=== PATIENT | male | born 1970 | race Caucasian/White ===

== ENCOUNTER 2016-11-21 16:20 | Emergency (ER) | payer MEDICARE, MEDICAID | END 2016-11-21 17:05 | disposition home or self-care (01) | DX: M54.42 Lumbago with sciatica, left side (principal); B20 Human immunodeficiency virus [HIV] disease; I10 Essential (primary) hypertension; E78.5 Hyperlipidemia, unspecified; E11.9 Type 2 diabetes mellitus without complications ==

== ENCOUNTER 2016-11-26 14:13 | Emergency (ER) | payer MEDICARE, MEDICAID | END 2016-11-26 19:32 | disposition short-term general hospital (02) | DX: D69.59 Other secondary thrombocytopenia (principal); B20 Human immunodeficiency virus [HIV] disease; R23.3 Spontaneous ecchymoses; E78.00 Pure hypercholesterolemia, unspecified; E11.9 Type 2 diabetes mellitus without complications; Z87.11 Personal history of peptic ulcer disease ==

== ENCOUNTER 2016-11-26 19:14 | Outpatient (CLI) | payer MEDICARE, MEDICAID | END 2016-11-26 19:15 | disposition short-term general hospital (02) | DX: D69.6 Thrombocytopenia, unspecified (principal); R21 Rash and other nonspecific skin eruption | CPT/HCPCS: A0170; A0425; A0428 ==

== ENCOUNTER 2016-12-07 11:32 | Emergency (ER) | payer MEDICARE, MEDICAID ==
[2016-12-07] MEDS ORDERED: OXYMETAZOLINE NASAL SPRAY NAS STA (14:16)
[2016-12-07] MEDS ORDERED: TRANEXAMIC ACID 1,000 MG/10 ML VIAL NAS STA (14:16)
[2016-12-07] MEDS ORDERED: OXYMETAZOLINE NASAL SPRAY NAS ONE (14:27)
[2016-12-07] MEDS ORDERED: TRANEXAMIC ACID 1,000 MG/10 ML VIAL ONE (14:27)
[2016-12-07] MEDS ORDERED: DEXAMETHASONE 10 MG/ML VIAL IVP STA (15:05)
[2016-12-07] MEDS ORDERED: DEXAMETHASONE 10 MG/ML VIAL ONE (15:30)
== END 2016-12-07 18:35 | disposition short-term general hospital (02) ==
DX: R04.0 Epistaxis (principal); D69.3 Immune thrombocytopenic purpura; E78.00 Pure hypercholesterolemia, unspecified; E11.9 Type 2 diabetes mellitus without complications; Z87.11 Personal history of peptic ulcer disease
CPT/HCPCS: 30901; 36415; 80053; 83690; 85025; 96374; 99283; 99284; A9270

== ENCOUNTER 2016-12-07 18:43 | Outpatient (CLI) | payer MEDICARE, MEDICAID | END 2016-12-07 18:44 | disposition short-term general hospital (02) | LOC: EMS 18:43 | PROVIDERS: ATTEND Surgery | DX: R04.0 Epistaxis (principal) | CPT/HCPCS: A0170; A0425; A0428 ==

== ENCOUNTER 2016-12-15 15:27 | Outpatient (CLI) | payer MEDICARE, MEDICAID ==
[2016-12-15 20:00] LABS: ALBUMIN/GLOBULIN RATIO 0.6 (1.0-2.2); BILIRUBIN,TOTAL 0.3 mg/dL (0.2-1.0); CALCIUM 8.9 mg/dL (8.5-10.3); POTASSIUM 4.1 mmol/L (3.5-5.0); TOTAL PROTEIN 8.4 g/dL (6.7-8.2)
[2016-12-15 20:20] LABS: BASOPHILS % (AUTO) 0.4 %; EOSINOPHILS # (AUTO) 0.1 10^3/uL (0.0-0.7); EOSINOPHILS % (AUTO) 0.8 %; HCT - HEMATOCRIT 44.5 % (42.0-52.0); HGB - HEMOGLOBIN 14.7 g/dL (14.0-18.0); LYMPHOCYTES # (AUTO) 2.2 10^3/uL (1.5-3.5); LYMPHOCYTES % (AUTO) 21.9 %; MEAN CORPUSCULAR HEMOGLOBIN 27.6 pg (27.0-31.0); MEAN CORPUSCULAR VOLUME 83.6 fL (80.0-94.0); MEAN PLATELET VOLUME 9.5 fL (7.4-11.4); MONOCYTES # (AUTO) 0.8 10^3/uL (0.0-1.0); MONOCYTES % (AUTO) 8.6 %; NEUTROPHILS # (AUTO) 6.8 10^3/uL (1.5-6.6); NEUTROPHILS % (AUTO) 68.3 %; NUCLEATED RED BLOOD CELLS AUTO 0.2 /100WBC; RED BLOOD COUNT 5.32 10^6/uL (4.70-6.10); RED CELL DISTRIBUTION WIDTH 13.5 % (12.0-15.0); UNCORRECTED WHITE BLOOD COUNT 9.9 x10^3/uL; WHITE BLOOD COUNT 9.9 x10^3/uL (4.8-10.8)
== END 2016-12-15 15:28 | disposition home or self-care (01) ==
LOC: LAB.N 15:27
PROVIDERS: ATTEND Physician Assistant
DX: B20 Human immunodeficiency virus [HIV] disease (principal)
CPT/HCPCS: 36415; 80053; 85025

== ENCOUNTER 2016-12-31 20:06 | Emergency (ER) | payer MEDICARE, MEDICAID ==
[2016-12-31 22:30] LABS: BASOPHILS # (AUTO) 0.1 10^3/uL (0.0-0.1); BASOPHILS % (AUTO) 1.1 %; EOSINOPHILS # (AUTO) 0.1 10^3/uL (0.0-0.7); EOSINOPHILS % (AUTO) 1.9 %; HGB - HEMOGLOBIN 14.4 g/dL (14.0-18.0); LYMPHOCYTES % (AUTO) 38.6 %; MEAN CORPUSCULAR HEMOGLOBIN 27.5 pg (27.0-31.0); MEAN CORPUSCULAR HGB CONC 34.2 g/dL (32.0-36.0); MEAN CORPUSCULAR VOLUME 80.5 fL (80.0-94.0); MEAN PLATELET VOLUME 9.5 fL (7.4-11.4); MONOCYTES # (AUTO) 0.7 10^3/uL (0.0-1.0); MONOCYTES % (AUTO) 9.2 %; NEUTROPHILS # (AUTO) 3.8 10^3/uL (1.5-6.6); NEUTROPHILS % (AUTO) 49.2 %; RED BLOOD COUNT 5.22 10^6/uL (4.70-6.10); RED CELL DISTRIBUTION WIDTH 13.9 % (12.0-15.0); UNCORRECTED WHITE BLOOD COUNT 7.7 x10^3/uL; WHITE BLOOD COUNT 7.7 x10^3/uL (4.8-10.8)
[2016-12-31 22:35] LABS: PT - PROTHROMBIN TIME 11.4 secs (9.9-12.6)
[2016-12-31 23:01] LABS: PLATELET ESTIMATE, MANUAL DECREASED (<130,000) (NORMAL)
[2016-12-31 23:08] LABS: ALBUMIN/GLOBULIN RATIO 1.2 (1.0-2.2); BILIRUBIN,TOTAL 0.5 mg/dL (0.2-1.0); CREATININE 1.1 mg/dL (0.6-1.2); POTASSIUM 3.8 mmol/L (3.5-5.0); TOTAL PROTEIN 8.1 g/dL (6.7-8.2)
[2016-12-31 23:38] VITALS: BP 149/101
[2017-01-01] MEDS ORDERED: DEXAMETHASONE 10 MG/ML VIAL PO STA
[2017-01-01] MEDS ORDERED: DEXAMETHASONE 10 MG/ML VIAL ONE (00:09)
[2017-01-01] MEDS ORDERED: CHERRY SYRUP 10 ML UDC PO ONE (00:10)
--- NOTE | 2017-01-01 02:40 | ED Physician Documentation ---
History of Present Illness - Stated complaint Stated Complaint: MOUTH DISCOMFORT - Chief complaint Chief Complaint: General - History obtained from History obtained from: Patient - History of Present Illness Timing: Today - Additonal information Additional information: Patient is 46 year old male with a history of hiv and recurrent itp who is presenting to the emergency department for a lesion on the roof of his mouth. patient states that he just noticed it today, but denies any trauma. Patient states that he has been on anti retrovirals but he had not been compliant with them. Patient denied any other symptoms at this time. Review of Systems Constitutional: denies: Fever, Chills, Myalgias Eyes: denies: Loss of vision, Decreased vision Ears: denies: Loss of hearing, Ear pain, Drainage/discharge Nose: denies: Rhinorrhea / runny nose, Congestion, Epistaxis Throat: denies: Dental pain / toothache, Oral lesions / sores, Sore throat Cardiac: denies: Chest pain / pressure, Palpitations Respiratory: denies: Dyspnea, Cough, Wheezing GI: denies: Abdominal Pain, Nausea, Vomiting : denies: Hematuria Musculoskeletal: denies: Neck pain, Back pain, Extremity pain Neurologic: denies: Generalized weakness, Headache, Head injury Immunocompromised: reports: HIV/AIDS PD PAST MEDICAL HISTORY - Past Medical History Past Medical History: No Cardiovascular: High cholesterol Respiratory: Pneumonia Neuro: None Endocrine/Autoimmune: Type 2 diabetes GI: Ulcers Psych: Depression, Anxiety, Bipolar disorder - Past Surgical History Past Surgical History: Yes General: Appendectomy - Present Medications Home Medications: Ambulatory Orders Medication Instructions Recorded Confirmed Meloxicam [Mobic] 7.5 mg PO DAILY #20 tablet 11/21/16 12/31/16 Methocarbamol [Robaxin] 1,000 mg PO Q8HR #30 tablet 11/21/16 12/31/16 raNITIdine [Zantac] 150 mg PO DAILY #30 tablet 11/21/16 12/31/16 Bupropion HCl [Bupropion Xl] 300 mg PO DAILY 12/31/16 12/31/16 Darunavir Ethanolate [Prezista] 800 mg PO DAILY 12/31/16 12/31/16 Dolutegravir Sodium [Tivicay] 50 mg PO DAILY 12/31/16 12/31/16 Emtricitabine [Emtriva] 200 mg PO DAILY 12/31/16 12/31/16 Fenofibrate 160 mg PO DAILY 12/31/16 12/31/16 Glimepiride 4 mg PO DAILY 12/31/16 12/31/16 Rilpivirine HCl [Edurant] 25 mg PO DAILY 12/31/16 12/31/16 Ritonavir [Norvir] 100 mg PO DAILY 12/31/16 12/31/16 Sitagliptin Phos/Metformin HCl 1 each PO DAILY 12/31/16 12/31/16 [Janumet 50-1,000 mg Tablet] Sulfamethoxazole/Trimethoprim 1 each PO BID 12/31/16 12/31/16 [Sulfamethoxazole-Tmp Ds Tablet] traZODone [Desyrel] 100 mg PO HS 12/31/16 12/31/16 - Allergies Allergies/Adverse Reactions: Allergies Allergy/AdvReac Type Severity Reaction Status Date / Time No Known Drug Allergies Allergy Verified 04/13/13 11:42 - Social History Does the pt smoke?: No Smoking Status: Never smoker Does the pt drink ETOH?: Yes Does the pt have substance abuse?: No - Immunizations Immunizations are current?: Yes - POLST Patient has POLST: No PD ED PE NORMAL - Vitals Vital signs reviewed: Yes - General General: Alert and oriented X 3, No acute distress, Well developed/nourished - HEENT HEENT: Atraumatic, PERRL - Neck Neck: Supple, no meningeal sign, No JVD - Cardiac Cardiac: RRR, No murmur - Respiratory Respiratory: No respiratory distress, Clear bilaterally - Abdomen Abdomen: Soft, Non tender, Non distended - Extremities Extremities: No deformity, No tenderness to palpate - Neuro Neuro: Alert and oriented X 3, No motor deficit, No sensory deficit, Normal speech - Psych Psych: Normal mood, Normal affect PD ED PE EXPANDED - HEENT HEENT: Other (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) Results - Vitals Vitals: Vital Signs - 24 hr 12/31/16 12/31/16 20:17 23:37 Temperature 36.0 C L Heart Rate 98 95 Respiratory 20 18 Rate Blood Pressure 164/106 H 149/101 H O2 Saturation 98 97 Oxygen O2 Source Room air - Labs Labs: Laboratory Tests 12/31/16 12/31/16 12/31/16 22:20 22:20 22:20 WBC 7.7 RBC 5.22 Hgb 14.4 Hct 42.0 MCV 80.5 MCH 27.5 MCHC 34.2 RDW 13.9 Plt Count 11 L* MPV 9.5 Neut # 3.8 Lymph # 3.0 [place] # 0.7 Eos # 0.1 Baso # 0.1 Absolute Nucleated RBC 0.00 Nucleated RBCs 0.0 Manual Slide Review Indicated Platelet Estimate DECREASED (<130,000) RBC Morph Micro Appear NORMAL APPEARANCE PT 11.4 INR 1.0 APTT 28.0 Sodium 135 Potassium 3.8 Chloride 98 L Carbon Dioxide 27 Anion Gap 10.0 BUN 14 Creatinine 1.1 Estimated GFR (MDRD) 72 L Glucose 85 Calcium 10.0 Total Bilirubin 0.5 AST 26 ALT 38 Alkaline Phosphatase 74 Total Protein 8.1 Albumin 4.4 Globulin 3.7 Albumin/Globulin Ratio 1.2 Lipase 34 PD MEDICAL DECISION MAKING - ED course Complexity details: reviewed old records, reviewed results, re-evaluated patient , considered differential, d/w patient, d/w [employer] consultant ED course: Patient was seen and examined at bedside. 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 labs were drawn. when patient's labs came back he was found to have platelets of 11. [facility] were called but there was no availability. Case was eventually discussed with [facility] who accepted the patient. there were no platelets in the hospital or ivig but patient was treated with dexamethasone 40mg po. Patient was discharged in stable condition. Departure - Departure Disposition: 02 Transfer Acute Care Hosp Clinical Impression: Acute ITP Condition: Stable Discharge Date/Time: 01/01/17 03:32
== END 2017-01-01 03:32 | disposition short-term general hospital (02) ==
LOC: ED 20:06
DX: D69.3 Immune thrombocytopenic purpura (principal); B20 Human immunodeficiency virus [HIV] disease; D18.09 Hemangioma of other sites; E11.9 Type 2 diabetes mellitus without complications; Z79.84 Long term (current) use of oral hypoglycemic drugs
CPT/HCPCS: 36415; 80053; 83690; 85025; 85610; 85730; 99283; 99285; A9270; 99284

== ENCOUNTER 2017-01-01 03:11 | Outpatient (CLI) | payer MEDICARE, MEDICAID | END 2017-01-01 03:12 | disposition short-term general hospital (02) | LOC: EMS 03:11 | PROVIDERS: ATTEND Surgery | DX: D69.6 Thrombocytopenia, unspecified (principal) | CPT/HCPCS: A0425; A0428 ==

== ENCOUNTER 2017-01-18 13:21 | Outpatient (CLI) | payer MEDICARE, MEDICAID ==
[2017-01-18 18:53] LABS: HCT - HEMATOCRIT 41.9 % (42.0-52.0); HGB - HEMOGLOBIN 14.2 g/dL (14.0-18.0); MEAN CORPUSCULAR HEMOGLOBIN 28.3 pg (27.0-31.0); MEAN CORPUSCULAR VOLUME 83.3 fL (80.0-94.0); MEAN PLATELET VOLUME 9.9 fL (7.4-11.4); RED BLOOD COUNT 5.03 10^6/uL (4.70-6.10); RED CELL DISTRIBUTION WIDTH 14.8 % (12.0-15.0); WHITE BLOOD COUNT 9.9 x10^3/uL (4.8-10.8)
== END 2017-01-18 13:22 | disposition home or self-care (01) ==
LOC: LAB.N 13:21
PROVIDERS: ATTEND Internal Medicine
DX: D69.3 Immune thrombocytopenic purpura (principal)
CPT/HCPCS: 36415

== ENCOUNTER 2017-09-19 18:36 | Emergency (ER) | payer MEDICARE, MEDICAID ==
[2017-09-19 18:43] VITALS: BP 136/116
[2017-09-19] MEDS ORDERED: ALBUTEROL NEB 2.5 MG/3 ML INH STA (18:53)
--- NOTE | 2017-09-19 19:01 | ED Physician Documentation ---
History of Present Illness - Stated complaint Stated Complaint: ST/COUGH/EAR PX - Chief complaint Chief Complaint: Heent - History obtained from History obtained from: Patient, Family - History of Present Illness Timing: How many days ago (3) Pain level max: 4 Pain level now: 4 Improved by: nothing Worsened by: nothing - Additonal information Additional information: Patient is a 47-year-old male who presents to the emergency department complaining of fever, body aches, rhinorrhea, nasal congestion and left ear pain. No vomiting. No diarrhea. Has had coughing as well. Nonproductive. He is HIV positive. Review of Systems Constitutional: reports: Fever Nose: reports: Rhinorrhea / runny nose, Congestion Musculoskeletal: denies: Neck pain, Back pain Neurologic: denies: Headache PD PAST MEDICAL HISTORY - Past Medical History Past Medical History: Yes Cardiovascular: High cholesterol Respiratory: Pneumonia Neuro: None Endocrine/Autoimmune: Type 2 diabetes GI: Ulcers Psych: Depression, Anxiety, Bipolar disorder - Past Surgical History Past Surgical History: Yes General: Appendectomy - Present Medications Home Medications: Ambulatory Orders Medication Instructions Recorded Confirmed Bupropion HCl [Bupropion Xl] 300 mg PO DAILY 12/31/16 09/19/17 Darunavir Ethanolate [Prezista] 800 mg PO DAILY 12/31/16 09/19/17 Dolutegravir Sodium [Tivicay] 50 mg PO DAILY 12/31/16 09/19/17 Emtricitabine [Emtriva] 200 mg PO DAILY 12/31/16 09/19/17 Fenofibrate 160 mg PO DAILY 12/31/16 09/19/17 Glimepiride 4 mg PO DAILY 12/31/16 09/19/17 Rilpivirine HCl [Edurant] 25 mg PO DAILY 12/31/16 09/19/17 Ritonavir [Norvir] 100 mg PO DAILY 12/31/16 09/19/17 Sitagliptin Phos/Metformin HCl 1 each PO DAILY 12/31/16 09/19/17 [Janumet 50-1,000 mg Tablet] traZODone [Desyrel] 100 mg PO HS 12/31/16 09/19/17 Albuterol Sulf [Ventolin Hfa 1 - 2 puffs INH Q4HR PRN #1 inhaler 09/19/17 Inhaler] Azithromycin [Zithromax] 250 mg PO DAILY #4 tablet 09/19/17 - Allergies Allergies/Adverse Reactions: Allergies Allergy/AdvReac Type Severity Reaction Status Date / Time No Known Drug Allergies Allergy Verified 04/13/13 11:42 - Social History Does the pt smoke?: No Smoking Status: Never smoker Does the pt drink ETOH?: Yes Does the pt have substance abuse?: No - Immunizations Immunizations are current?: Yes - POLST Patient has POLST: No PD ED PE NORMAL - Vitals Vital signs reviewed: Yes - General General: Alert and oriented X 3, No acute distress - HEENT HEENT: Moist mucous membranes, Pharynx benign, Other (Right tympanic membrane is normal. Left tympanic membrane is erythematous, dull, bulging with loss of landmarks. Purulent fluid present.) - Neck Neck: Supple, no meningeal sign - Cardiac Cardiac: RRR, Strong equal pulses - Respiratory Respiratory: No respiratory distress, Other (Diminished breath sounds bilaterally, mild wheeze) - Abdomen Abdomen: Soft, Non tender, Non distended - Derm Derm: Warm and dry, No rash - Neuro Neuro: Alert and oriented X 3 - Psych Psych: Normal mood, Normal affect Results - Vitals Vitals: Vital Signs - 24 hr 09/19/17 09/19/17 18:41 19:10 Temperature 36.4 C L Heart Rate 99 92 Respiratory 18 16 Rate Blood Pressure 136/116 H O2 Saturation 97 Oxygen O2 Source Room air - Labs Labs: Laboratory Tests 09/19/17 19:00 WBC 12.4 H RBC 5.73 Hgb 15.0 Hct 45.0 MCV 78.5 L MCH 26.1 L MCHC 33.3 RDW 13.9 Plt Count 148 MPV 8.4 Neut # 9.0 H Lymph # 2.1 [place] # 1.1 H Eos # 0.1 Baso # 0.1 Absolute Nucleated RBC 0.02 Nucleated RBC % 0.1 PD MEDICAL DECISION MAKING - ED course Complexity details: considered differential, d/w patient, d/w family ED course: Patient is a 47-year-old male who presents to the emergency department what appears to be a viral upper respiratory infection complicated by left acute otitis media. Will place on antibiotics for this. He feels better after nebulizer treatment and lungs do have improved aeration bilaterally. Will prescribe an inhaler for home. He has a history of ITP, therefore a CBC was checked and his platelet count is stable from prior. Patient counseled regarding signs and symptoms for which I believe and urgent re-evaluation would be necessary. Patient with good understanding of and agreement to plan and is comfortable going home at this time This document was made in part using voice recognition software. While efforts are made to proofread this document, sound alike and grammatical errors may occur. Departure - Departure Disposition: Home, Self Care Clinical Impression: Viral syndrome Otitis media Qualifiers: Otitis media type: suppurative Chronicity: acute Laterality: left Recurrence: not specified as recurrent Spontaneous tympanic membrane rupture: without spontaneous rupture Qualified Code(s): H66.002 - Acute suppurative otitis media without spontaneous rupture of ear drum, left ear Condition: Good Instructions: ED Otitis Media Acute Adult, ED Viral Syndrome Follow-Up: your,doctor in 1 week [Other] Prescriptions: Albuterol Sulf [Ventolin Hfa Inhaler] 1 - 2 puffs INH Q4HR PRN #1 inhaler PRN Reason: Shortness Of Air/Wheezing Azithromycin [Zithromax] 250 mg PO DAILY #4 tablet Comments: Take all antibiotics until gone. Return if you worsen. Discharge Date/Time: 09/19/17 19:50
[2017-09-19 19:12] LABS: BASOPHILS # (AUTO) 0.1 10^3/uL (0.0-0.1); BASOPHILS % (AUTO) 0.7 %; EOSINOPHILS # (AUTO) 0.1 10^3/uL (0.0-0.7); EOSINOPHILS % (AUTO) 0.9 %; LYMPHOCYTES # (AUTO) 2.1 10^3/uL (1.5-3.5); LYMPHOCYTES % (AUTO) 17.1 %; MEAN CORPUSCULAR HEMOGLOBIN 26.1 pg (27.0-31.0); MEAN CORPUSCULAR HGB CONC 33.3 g/dL (32.0-36.0); MEAN CORPUSCULAR VOLUME 78.5 fL (80.0-94.0); MEAN PLATELET VOLUME 8.4 fL (7.4-11.4); MONOCYTES # (AUTO) 1.1 10^3/uL (0.0-1.0); MONOCYTES % (AUTO) 8.7 %; NEUTROPHILS % (AUTO) 72.6 %; PLT - PLATELET COUNT 148 10^3/uL (130-450); RED BLOOD COUNT 5.73 10^6/uL (4.70-6.10); RED CELL DISTRIBUTION WIDTH 13.9 % (12.0-15.0); WHITE BLOOD COUNT 12.4 x10^3/uL (4.8-10.8)
[2017-09-19] MEDS ORDERED: AZITHROMYCIN 250 MG TABLET PO STA (19:20)
== END 2017-09-19 19:50 | disposition home or self-care (01) ==
LOC: ED 18:36
DX: B34.9 Viral infection, unspecified (principal); H66.002 Acute suppurative otitis media without spontaneous rupture of ear drum, left ear; E11.9 Type 2 diabetes mellitus without complications
CPT/HCPCS: 36415; 85025; 94640; 99283; 99284; A9270; J7613; 87430

== ENCOUNTER 2017-11-08 14:02 | Emergency (ER) | payer MEDICARE, MEDICAID ==
[2017-11-08 15:08] LABS: BILIRUBIN,URINE NEGATIVE (NEGATIVE); GLUCOSE, URINE (UA) NEGATIVE (NEGATIVE); KETONES,URINE (UA) NEGATIVE (NEGATIVE); LEUKOCYTE ESTERASE, URINE NEGATIVE (NEGATIVE); NITRITE,URINE NEGATIVE (NEGATIVE); OCCULT BLOOD,URINE NEGATIVE (NEGATIVE); PROTEIN,URINE NEGATIVE (NEGATIVE); UROBILINOGEN,URINE 0.2 (NORMAL) E.U./dL (NORMAL)
[2017-11-08 15:13] LABS: CLARITY,URINE CLEAR (CLEAR)
[2017-11-08 15:39] LABS: BASOPHILS # (AUTO) 0.1 10^3/uL (0.0-0.1); BASOPHILS % (AUTO) 0.7 %; EOSINOPHILS # (AUTO) 0.1 10^3/uL (0.0-0.7); EOSINOPHILS % (AUTO) 1.4 %; HGB - HEMOGLOBIN 15.5 g/dL (14.0-18.0); LYMPHOCYTES # (AUTO) 2.5 10^3/uL (1.5-3.5); LYMPHOCYTES % (AUTO) 28.8 %; MEAN CORPUSCULAR HEMOGLOBIN 26.4 pg (27.0-31.0); MEAN CORPUSCULAR HGB CONC 33.6 g/dL (32.0-36.0); MEAN CORPUSCULAR VOLUME 78.7 fL (80.0-94.0); MEAN PLATELET VOLUME 8.6 fL (7.4-11.4); MONOCYTES # (AUTO) 0.7 10^3/uL (0.0-1.0); MONOCYTES % (AUTO) 8.3 %; NEUTROPHILS # (AUTO) 5.3 10^3/uL (1.5-6.6); NEUTROPHILS % (AUTO) 60.8 %; PLT - PLATELET COUNT 151 10^3/uL (130-450); RED BLOOD COUNT 5.86 10^6/uL (4.70-6.10); RED CELL DISTRIBUTION WIDTH 13.7 % (12.0-15.0); WHITE BLOOD COUNT 8.8 x10^3/uL (4.8-10.8)
[2017-11-08 15:50] LABS: ALBUMIN 4.8 g/dL (3.2-5.5); ALBUMIN/GLOBULIN RATIO 1.7 (1.0-2.2); BILIRUBIN,TOTAL 0.7 mg/dL (0.2-1.0); CALCIUM 9.8 mg/dL (8.5-10.3); TOTAL PROTEIN 7.6 g/dL (6.7-8.2)
--- NOTE | 2017-11-08 16:31 | ED Physician Documentation ---
PD HPI ABD PAIN - Stated complaint Stated Complaint: SIDE PX - Chief complaint Chief Complaint: Abd Pain - History obtained from History obtained from: Patient, Family - History of Present Illness Timing - onset: Enter time (1200), Today Timing - duration: Hours Timing - details: Abrupt onset, Still present, Waxing and waning Quality: Cramping, Sharp, Pain Location: RLQ Improved by: Laying still Worsened by: Position Associated symptoms: No: Nausea, Vomiting, Diarrhea, Constipation, Dysuria, Hematuria, Chest pain, Dizzy Similar symptoms before: Has not had sx before Recently seen: Clinic - Additional information Additional information: 47-year-old male with a history of HIV and AIDS who has had some problems with his platelets was sitting in a chair with his right leg over the chair arm and when he went to get up he had a sudden sharp pain in the right side over one of the scars from his appendix surgery. Review of Systems Constitutional: denies: Fever, Chills, Myalgias Eyes: denies: Decreased vision Ears: denies: Ear pain Nose: denies: Congestion Throat: denies: Sore throat Cardiac: denies: Chest pain / pressure, Palpitations Respiratory: denies: Dyspnea, Cough GI: reports: Abdominal Pain. denies: Nausea, Vomiting, Constipation, Diarrhea : denies: Dysuria, Frequency Skin: denies: Rash Musculoskeletal: denies: Neck pain, Back pain, Extremity pain Neurologic: denies: Generalized weakness, Focal weakness, Numbness PD PAST MEDICAL HISTORY - Past Medical History Cardiovascular: High cholesterol Respiratory: Pneumonia Neuro: None Endocrine/Autoimmune: Type 2 diabetes GI: Ulcers Psych: Depression, Anxiety, Bipolar disorder - Past Surgical History Past Surgical History: Yes General: Appendectomy - Present Medications Home Medications: Ambulatory Orders Medication Instructions Recorded Confirmed Bupropion HCl [Bupropion Xl] 300 mg PO DAILY 12/31/16 10/04/17 Darunavir Ethanolate [Prezista] 800 mg PO DAILY 12/31/16 10/04/17 Dolutegravir Sodium [Tivicay] 50 mg PO DAILY 12/31/16 10/04/17 Emtricitabine [Emtriva] 200 mg PO DAILY 12/31/16 10/04/17 Fenofibrate 160 mg PO DAILY 12/31/16 10/04/17 Glimepiride 4 mg PO DAILY 12/31/16 10/04/17 Rilpivirine HCl [Edurant] 25 mg PO DAILY 12/31/16 10/04/17 Ritonavir [Norvir] 100 mg PO DAILY 12/31/16 10/04/17 Sitagliptin Phos/Metformin HCl 1 each PO DAILY 12/31/16 10/04/17 [Janumet 50-1,000 mg Tablet] traZODone [Desyrel] 100 mg PO HS 12/31/16 10/04/17 - Allergies Allergies/Adverse Reactions: Allergies Allergy/AdvReac Type Severity Reaction Status Date / Time No Known Drug Allergies Allergy Verified 11/08/17 14:13 - Social History Does the pt smoke?: No Smoking Status: Never smoker Does the pt drink ETOH?: Yes Does the pt have substance abuse?: No - Immunizations Immunizations are current?: Yes - POLST Patient has POLST: No PD ED PE NORMAL - Vitals Vital signs reviewed: Yes (tachy and hypertensive) - General General: Alert and oriented X 3, No acute distress, Well developed/nourished - HEENT HEENT: Atraumatic, PERRL - Neck Neck: Supple, no meningeal sign - Cardiac Cardiac: RRR, No murmur - Respiratory Respiratory: No respiratory distress, Clear bilaterally - Abdomen Abdomen: Normal bowel sounds, Soft, Non tender, Non distended, No organomegaly, Other (There are well healed surgical scars from a prior laproscopic appendectomy without underlying tenderness to deep palpation. ) - Back Back: No CVA TTP, No spinal TTP - Derm Derm: Normal color, Warm and dry, No rash - Extremities Extremities: No deformity, No edema - Neuro Neuro: Alert and oriented X 3, No motor deficit, No sensory deficit, Normal speech Eye Opening: Spontaneous Motor: Obeys Commands Verbal: Oriented GCS Score: 15 - Psych Psych: Normal mood, Normal affect Results - Vitals Vitals: Vital Signs - 24 hr 11/08/17 14:11 Temperature 36.8 C Heart Rate 102 H Respiratory 18 Rate Blood Pressure 148/94 H O2 Saturation 97 Oxygen O2 Source Room air - Labs Labs: Laboratory Tests 11/08/17 11/08/17 11/08/17 14:53 15:20 15:20 WBC 8.8 RBC 5.86 Hgb 15.5 Hct 46.1 MCV 78.7 L MCH 26.4 L MCHC 33.6 RDW 13.7 Plt Count 151 MPV 8.6 Neut # 5.3 Lymph # 2.5 [place] # 0.7 Eos # 0.1 Baso # 0.1 Absolute Nucleated RBC 0.01 Nucleated RBC % 0.1 Sodium 138 Potassium 3.6 Chloride 100 L Carbon Dioxide 30 Anion Gap 8.0 BUN 10 Creatinine 1.0 Estimated GFR (MDRD) 80 L Glucose 126 H Calcium 9.8 Total Bilirubin 0.7 AST 23 ALT 30 Alkaline Phosphatase 69 Total Protein 7.6 Albumin 4.8 Globulin 2.8 Albumin/Globulin Ratio 1.7 Lipase 10 L Urine Color YELLOW Urine Clarity CLEAR Urine pH 6.0 Ur Specific [place] 1.010 Urine Protein NEGATIVE Urine Glucose (UA) NEGATIVE Urine Ketones NEGATIVE Urine Occult Blood NEGATIVE Urine Nitrite NEGATIVE Urine Bilirubin NEGATIVE Urine Urobilinogen 0.2 (NORMAL) Ur Leukocyte Esterase NEGATIVE Ur Microscopic Review NOT INDICATED Urine Culture Comments NOT INDICATED Procedures - Bedside sono Bedside sono by EMP: With use of bedside ultrasound the right kidney is imaged there is no evidence of hydronephrosis and the kidney is sonographically nontender. PD MEDICAL DECISION MAKING - ED course Complexity details: reviewed old records, reviewed results, re-evaluated patient , considered differential, d/w patient, d/w family ED course: 47-year-old male with pain in his right lower quadrant of his abdomen that happened acutely after an abnormal positioning has a benign exam today in the emergency department and he is able to reproduce this pain with certain positions. The pain is not persistent and he has no other specific symptoms. I suspect he has an abdominal wall strain and this should resolve. He does have the pain under a prior surgical port for appendicitis. He is being followed closely for his platelets and his platelets today are normal. Departure - Departure Disposition: 01 Home, Self Care Clinical Impression: Abdominal wall strain Qualifiers: Encounter type: initial encounter Qualified Code(s): S39.011A - Strain of muscle, fascia and tendon of abdomen, initial encounter Condition: Stable Instructions: ED Strain Abdominal Muscle Follow-Up: Sumit Church MD [Primary Care Provider] - Comments: Today your platelet count was 151K
[2017-11-08 16:42] VITALS: BP 177/110
== END 2017-11-08 16:48 | disposition home or self-care (01) ==
LOC: ED 14:02
DX: S39.011A Strain of muscle, fascia and tendon of abdomen, initial encounter (principal); X58.XXXA Exposure to other specified factors, initial encounter; Z21 Asymptomatic human immunodeficiency virus [HIV] infection status; E78.00 Pure hypercholesterolemia, unspecified; E11.9 Type 2 diabetes mellitus without complications; Z87.11 Personal history of peptic ulcer disease
CPT/HCPCS: 36415; 80053; 81001; 81003; 83690; 85025; 87086; 99283

== ENCOUNTER 2018-05-27 15:39 | Emergency (ER) | payer MEDICARE, MEDICAID ==
--- NOTE | 2018-05-27 15:59 | ED Physician Documentation ---
PD HPI ABD PAIN - Stated complaint Stated Complaint: ABD PX - Chief complaint Chief Complaint: Abd Pain - History obtained from History obtained from: Patient - History of Present Illness Timing - onset: Today Timing - duration: Days (1) Timing - details: Abrupt onset Pain level max: 9 Pain level now: 5 Quality: Sharp, Pain Location: RLQ Radiation: Other (non-radiating) Improved by: Laying still Worsened by: Moving, Palpation Associated symptoms: Nausea. No: Fever, Vomiting, Hematemesis, Diarrhea, Constipation, Melena, Hematochezia, Dysuria, Hematuria, Chest pain, Testicular pain Similar symptoms before: Has not had sx before Recently seen: Not recently seen - Additional information Additional information: Patient is a 48-year-old male, HIV positive who presents with right lower quadrant abdominal pain. He had his appendix taken out several years ago. Sudden onset, sharp and cramping Review of Systems Ten Systems: 10 systems reviewed and negative Constitutional: denies: Fever, Chills Ears: denies: Ear pain Nose: denies: Rhinorrhea / runny nose, Congestion Throat: denies: Sore throat Cardiac: denies: Chest pain / pressure Respiratory: denies: Cough GI: denies: Abdominal Pain, Nausea, Vomiting, Diarrhea : denies: Dysuria, Frequency, Hesitancy, Hematuria Skin: denies: Rash Musculoskeletal: denies: Neck pain, Back pain Neurologic: denies: Focal weakness, Numbness, Headache PD PAST MEDICAL HISTORY - Past Medical History Cardiovascular: High cholesterol Respiratory: Pneumonia Endocrine/Autoimmune: Type 2 diabetes GI: Ulcers Psych: Depression, Anxiety, Bipolar disorder - Past Surgical History Past Surgical History: Yes General: Appendectomy - Present Medications Home Medications: Ambulatory Orders Medication Instructions Recorded Confirmed Bupropion HCl [Bupropion Xl] 300 mg PO DAILY 12/31/16 04/11/18 Darunavir Ethanolate [Prezista] 800 mg PO DAILY 12/31/16 04/11/18 Dolutegravir Sodium [Tivicay] 50 mg PO DAILY 12/31/16 04/11/18 Emtricitabine [Emtriva] 200 mg PO DAILY 12/31/16 04/11/18 Fenofibrate 160 mg PO DAILY 12/31/16 04/11/18 Glimepiride 4 mg PO DAILY 12/31/16 04/11/18 Rilpivirine HCl [Edurant] 25 mg PO DAILY 12/31/16 04/11/18 Ritonavir [Norvir] 100 mg PO DAILY 12/31/16 04/11/18 Sitagliptin Phos/Metformin HCl 1 each PO DAILY 12/31/16 04/11/18 [Janumet 50-1,000 mg Tablet] traZODone [Desyrel] 100 mg PO HS 12/31/16 04/11/18 Hyoscyamine Sulfate [Levsin-Sl] 0.125 mg SL Q6H PRN #14 tab.subl 05/27/18 - Allergies Allergies/Adverse Reactions: Allergies Allergy/AdvReac Type Severity Reaction Status Date / Time No Known Drug Allergies Allergy Verified 05/27/18 15:48 - Social History Does the pt smoke?: No Smoking Status: Never smoker Does the pt drink ETOH?: Yes Does the pt have substance abuse?: No - Immunizations Immunizations are current?: Yes - POLST Patient has POLST: No PD ED PE NORMAL - Vitals Vital signs reviewed: Yes - General General: Alert and oriented X 3, No acute distress - HEENT HEENT: Moist mucous membranes - Neck Neck: Supple, no meningeal sign - Cardiac Cardiac: RRR, Strong equal pulses - Respiratory Respiratory: No respiratory distress, Clear bilaterally - Abdomen Abdomen: Soft, Other (Tender palpation right lower quadrant. No peritoneal signs) - Back Back: No CVA TTP, No spinal TTP - Derm Derm: Warm and dry - Extremities Extremities: No edema - Neuro Neuro: Alert and oriented X 3 Results - Vitals Vitals: Vital Signs - 24 hr 05/27/18 15:47 Temperature 36.3 C L Heart Rate 106 H Respiratory 16 Rate Blood Pressure 154/90 H O2 Saturation 99 Oxygen O2 Source Room air - Labs Labs: Laboratory Tests 05/27/18 05/27/18 05/27/18 16:21 16:21 17:07 WBC 13.5 H RBC 5.72 Hgb 15.5 Hct 45.7 MCV 79.9 L MCH 27.1 MCHC 34.0 RDW 13.4 Plt Count 215 MPV 8.2 Neut # (Auto) 10.8 H Lymph # (Auto) 1.7 [place] # (Auto) 0.9 Eos # (Auto) 0.1 Baso # (Auto) 0.1 Absolute Nucleated RBC 0.01 Nucleated RBC % 0.1 Sodium 136 Potassium 4.0 Chloride 100 L Carbon Dioxide 27 Anion Gap 9.0 BUN 10 Creatinine 0.8 Estimated GFR (MDRD) 103 Glucose 170 H Calcium 9.4 Total Bilirubin 0.4 AST 22 ALT 36 Alkaline Phosphatase 91 Total Protein 7.4 Albumin 4.7 Globulin 2.7 Albumin/Globulin Ratio 1.7 Lipase 23 Urine Color YELLOW Urine Clarity CLEAR Urine pH 8.0 H Ur Specific [place] 1.015 Urine Protein NEGATIVE Urine Glucose (UA) NEGATIVE Urine Ketones NEGATIVE Urine Occult Blood NEGATIVE Urine Nitrite NEGATIVE Urine Bilirubin NEGATIVE Urine Urobilinogen 0.2 (NORMAL) Ur Leukocyte Esterase NEGATIVE Ur Microscopic Review NOT INDICATED Urine Culture Comments NOT INDICATED - Rads (name of study) CT abdomen pelvis Radiology: Prelim report reviewed, EMP read contemporaneously, See rad report (Mildly dilated small bowel in the lower abdomen with associated mild mesenteric edema and a small amount of fecalized contents proximal to an area of small bowel kinking. Findings may represent early or partial small bowel obstruction. Enteritis could also have this appearance. 2. Findings of previous appendectomy. 3. Mild hepatic steatosis. 4. Subcentimeter enhancing lesion in hepatic segment 6 is not significantly changed since 2013 and demonstrates enhancement similar to blood pool. This may represent hemangioma. 5. Hypoattenuating lesion in the spleen is also not significantly changed since 2013, suggestive of benignity. ) PD MEDICAL DECISION MAKING - ED course Complexity details: reviewed results, re-evaluated patient, considered differential, d/w patient ED course: Patient is a 48-year-old male with right lower quadrant abdominal pain. Possible early small bowel obstruction versus partial small bowel obstruction versus enteritis. He declines any pain medication here in the emergency department. No vomiting. Tolerating p.o. well. Patient was counseled r egarding the possibility of early small bowel obstruction and that this may worsen. He will stay on a liquid diet and will prescribe Levsin for home. We will have him follow-up closely with his doctor. If his pain worsens or he begins to vomit he will return immediately. Patient counseled regarding signs and symptoms for which I believe and urgent re-evaluation would be necessary. Patient with good understanding of and agreement to plan and is comfortable going home at this time This document was made in part using voice recognition software. While efforts are made to proofread this document, sound alike and grammatical errors may occur. Departure - Departure Disposition: Home, Self Care Clinical Impression: Abdominal pain Qualifiers: Abdominal location: right lower quadrant Qualified Code(s): R10.31 - Right lower quadrant pain Condition: Good Instructions: ED Abdominal Pain Unkn Cause Male Follow-Up: Jermaine Goodwin MD [Primary Care Provider] - Within 1 week Prescriptions: Hyoscyamine Sulfate [Levsin-Sl] 0.125 mg SL Q6H PRN #14 tab.subl PRN Reason: Abdominal Pain Comments: The cause of your symptoms is unclear today. It may be related to a small amount of focal inflammation in your small intestine, or a possible early bowel obstruction. I would recommend a liquid diet for the next 2 days. If you begin to vomit or have uncontrolled pain, return for further evaluation. Follow-up with your doctor for further care if you are doing well
[2018-05-27] MEDS ORDERED: IOPAMIDOL-300 100 ML VIAL ONE (16:00)
[2018-05-27 16:31] LABS: BASOPHILS # (AUTO) 0.1 10^3/uL (0.0-0.1); BASOPHILS % (AUTO) 0.7 %; EOSINOPHILS # (AUTO) 0.1 10^3/uL (0.0-0.7); EOSINOPHILS % (AUTO) 0.7 %; HGB - HEMOGLOBIN 15.5 g/dL (14.0-18.0); LYMPHOCYTES # (AUTO) 1.7 10^3/uL (1.5-3.5); LYMPHOCYTES % (AUTO) 12.4 %; MEAN CORPUSCULAR HEMOGLOBIN 27.1 pg (27.0-31.0); MEAN CORPUSCULAR VOLUME 79.9 fL (80.0-94.0); MEAN PLATELET VOLUME 8.2 fL (7.4-11.4); MONOCYTES # (AUTO) 0.9 10^3/uL (0.0-1.0); MONOCYTES % (AUTO) 6.4 %; NEUTROPHILS # (AUTO) 10.8 10^3/uL (1.5-6.6); NEUTROPHILS % (AUTO) 79.8 %; PLT - PLATELET COUNT 215 10^3/uL (130-450); RED BLOOD COUNT 5.72 10^6/uL (4.70-6.10); RED CELL DISTRIBUTION WIDTH 13.4 % (12.0-15.0); WHITE BLOOD COUNT 13.5 x10^3/uL (4.8-10.8)
[2018-05-27 16:42] LABS: ALBUMIN 4.7 g/dL (3.2-5.5); ALBUMIN/GLOBULIN RATIO 1.7 (1.0-2.2); BILIRUBIN,TOTAL 0.4 mg/dL (0.2-1.0); CALCIUM 9.4 mg/dL (8.5-10.3); CREATININE 0.8 mg/dL (0.6-1.2); TOTAL PROTEIN 7.4 g/dL (6.7-8.2)
[2018-05-27] MEDS ORDERED: IOPAMIDOL-300 100 ML VIAL IVP ONE (17:10)
[2018-05-27 17:19] LABS: BILIRUBIN,URINE NEGATIVE (NEGATIVE); CLARITY,URINE CLEAR (CLEAR); GLUCOSE, URINE (UA) NEGATIVE (NEGATIVE); KETONES,URINE (UA) NEGATIVE (NEGATIVE); LEUKOCYTE ESTERASE, URINE NEGATIVE (NEGATIVE); NITRITE,URINE NEGATIVE (NEGATIVE); OCCULT BLOOD,URINE NEGATIVE (NEGATIVE); PROTEIN,URINE NEGATIVE (NEGATIVE); UROBILINOGEN,URINE 0.2 (NORMAL) E.U./dL (NORMAL)
--- NOTE | 2018-05-27 18:00 | CT Report ---
Reason: RLQ abd pain, stabbing Procedure Date: 05/27/2018 Accession Number: [id number] / [id number] Procedure: CT - Abdomen/Pelvis W/ CPT Code: FULL RESULT: EXAM: CT ABDOMEN AND PELVIS EXAM DATE: 05/27/2018 04:59 PM. CLINICAL HISTORY: RLQ abd pain, stabbing. COMPARISONS: Chest CT from 10/17/2012. TECHNIQUE: Routine helical CT imaging was performed through the abdomen and pelvis. IV contrast: 100 cc Isovue-300. Enteric contrast: No. Reconstructions: Coronal and sagittal. In accordance with CT protocol optimization, one or more of the following dose reduction techniques were utilized for this exam: automated exposure control, adjustment of mA and/or KV based on patient size, or use of iterative reconstructive technique. FINDINGS: Lung Bases: Unremarkable. Liver: There is diffuse low attenuation, compatible with hepatic steatosis. There is a 7 mm enhancing lesion in hepatic segment 6 (series 4, image 32), which is not significantly changed since 2013. Enhancement is somewhat similar to blood pool. Portal veins are patent. Gallbladder/Bile Ducts: Unremarkable. Spleen: There is a 14 mm lesion with peripheral nodular enhancement (series 4, image 24). This is not significantly changed since 2013 and may represent hemangioma. Spleen is otherwise unremarkable. Pancreas: Mild fatty infiltration. Otherwise unremarkable. Adrenal Glands: No nodules. Kidneys: There is a cyst in the upper pole of the left kidney as well as adjacent subcentimeter hypoattenuating focus, which is too small to characterize. Kidneys otherwise unremarkable. No hydronephrosis. Peritoneal Cavity/Bowel: The appendix is surgically absent. There is focal dilation of small bowel in the right lower abdomen with bowel loop measuring up to 3.5 cm (series 4, image 75). These dilated bowel loops demonstrate minimal mesenteric edema (series 4, image 69). There are is a small area of fecalized contents in the right anterior lower abdomen just proximal to an area of kinking (series 4, image 68). The bowel elsewhere appears unremarkable. No evidence for high-grade bowel obstruction or additional areas of bowel inflammation. There is diverticulosis of the descending and sigmoid colon. No evidence for acute diverticulitis. Pelvic Organs: Urinary bladder is unremarkable. Prostate and seminal vesicles are unremarkable in CT appearance. There is no pelvic adenopathy or free fluid. Vasculature: No abdominal aortic aneurysm. Portal veins are patent. Bones: No suspicious osseous lesion. Other: No retroperitoneal adenopathy. There are findings of previous ventral hernia repair. IMPRESSION: 1. Mildly dilated small bowel in the lower abdomen with associated mild mesenteric edema and a small amount of fecalized contents proximal to an area of small bowel kinking. Findings may represent early or partial small bowel obstruction. Enteritis could also have this appearance. 2. Findings of previous appendectomy. 3. Mild hepatic steatosis. 4. Subcentimeter enhancing lesion in hepatic segment 6 is not significantly changed since 2013 and demonstrates enhancement similar to blood pool. This may represent hemangioma. 5. Hypoattenuating lesion in the spleen is also not significantly changed since 2013, suggestive of benignity. RADIA
[2018-05-27] MEDS ORDERED: HYOSCYAMINE SL 0.125 MG TABLET SL STA (18:04)
[2018-05-27 18:27] VITALS: BP 136/99
== END 2018-05-27 18:28 | disposition home or self-care (01) ==
LOC: ED 15:39
DX: R10.31 Right lower quadrant pain (principal); E78.00 Pure hypercholesterolemia, unspecified; E11.9 Type 2 diabetes mellitus without complications; Z21 Asymptomatic human immunodeficiency virus [HIV] infection status
CPT/HCPCS: 36415; 74177; 80053; 81003; 83690; 85025; 99283; A9270; Q9967; 81001; 87086

== ENCOUNTER 2022-08-25 13:57 | Outpatient (CLI) | payer MEDICARE, MEDICAID ==
[2022-08-25 14:48] LABS: CREATININE,URINE 256.7 mg/dL; MICROALBUM/CREATININE RATIO,UR 16.8 ug/mg (<30.0); MICROALBUMIN,URINE 4.3 mg/dL (0-300.0)
== END 2022-08-25 13:58 | disposition home or self-care (01) ==
LOC: LAB 13:57
PROVIDERS: ATTEND Nurse Practitioner
DX: I10 Essential (primary) hypertension (principal); E78.5 Hyperlipidemia, unspecified; E11.9 Type 2 diabetes mellitus without complications; Z12.5 Encounter for screening for malignant neoplasm of prostate; R53.83 Other fatigue
CPT/HCPCS: 36415; 80053; 80061; 82043; 82570; 83036; 83721; 84153; 84443; 85025

== ENCOUNTER 2022-08-28 08:00 | Outpatient (CLI) | payer MEDICARE, MEDICAID ==
[2022-08-28 08:04] LABS: BASOPHILS % (AUTO) 0.3 %; EOSINOPHILS # (AUTO) 0.2 10^3/uL (0.0-0.7); EOSINOPHILS % (AUTO) 3.1 %; HCT - HEMATOCRIT 43.5 % (42.0-52.0); HGB - HEMOGLOBIN 15.3 g/dL (14.0-18.0); LYMPHOCYTES # (AUTO) 2.4 10^3/uL (1.5-3.5); LYMPHOCYTES % (AUTO) 33.9 %; MEAN CORPUSCULAR HEMOGLOBIN 28.3 pg (27.0-31.0); MEAN CORPUSCULAR HGB CONC 35.2 g/dL (32.0-36.0); MEAN CORPUSCULAR VOLUME 80.6 fL (80.0-94.0); MEAN PLATELET VOLUME 10.7 fL (7.4-11.4); MONOCYTES # (AUTO) 0.7 10^3/uL (0.0-1.0); MONOCYTES % (AUTO) 9.6 %; NEUTROPHILS # (AUTO) 3.8 10^3/uL (1.5-6.6); PLT - PLATELET COUNT 229 10^3/uL (130-450); RED CELL DISTRIBUTION WIDTH 12.5 % (12.0-15.0); WHITE BLOOD COUNT 7.1 x10^3/uL (4.8-10.8)
[2022-08-28 08:19] LABS: ALBUMIN 4.7 g/dL (3.2-5.5); ALBUMIN/GLOBULIN RATIO 1.6 (1.0-2.2); ALKALINE PHOSPHATASE 65 IU/L (42-121); ALT ALANINE AMINOTRANSFERASE 30 IU/L (10-60); AST ASPARTATE AMINOTRANSFERASE 21 IU/L (10-42); BUN - BLOOD UREA NITROGEN 9 mg/dL (6-20); CALCIUM 9.3 mg/dL (8.5-10.3); CARBON DIOXIDE - CO2 25 mmol/L (21-32); CHLORIDE 101 mmol/L (101-111); CHOL/HDL RATIO 4.5 (<5.0); CHOLESTEROL 149 mg/dL; GFR - MDRD 78 (>89); GLUCOSE 157 mg/dL (70-100); HDL CHOLESTEROL 33 mg/dL; LDL CHOLESTEROL,CALCULATED 59 mg/dL; LDL/HDL RATIO 1.8 (<3.6); POTASSIUM 3.3 mmol/L (3.5-5.0); SODIUM 136 mmol/L (135-145); TOTAL PROTEIN 7.6 g/dL (6.7-8.2); TRIGLYCERIDES 286 mg/dL; VLDL CHOLESTEROL 57 mg/dL
[2022-08-28 08:31] LABS: THYROID STIMULATING HORMONE 1.04 uIU/mL (0.34-5.60)
[2022-08-28 10:11] LABS: ESTIMATED AVERAGE GLUCOSE 140 mg/dL (70-100); HEMOGLOBIN A1c% 6.5 % (4.27-6.07)
== END 2022-08-28 23:59 | disposition home or self-care (01) ==
LOC: LAB.WCP 08:00
PROVIDERS: ATTEND Nurse Practitioner
DX: I10 Essential (primary) hypertension (principal); E78.5 Hyperlipidemia, unspecified; Z12.5 Encounter for screening for malignant neoplasm of prostate; E11.9 Type 2 diabetes mellitus without complications; R53.83 Other fatigue
CPT/HCPCS: 36415; 80053; 80061; 83036; 84443; 85025; G0103; 83721; 84153

== ENCOUNTER 2022-11-19 07:13 | Outpatient (CLI) | payer MEDICARE, MEDICAID ==
--- NOTE | 2022-11-19 12:12 | Ultrasound Report ---
PROCEDURE: Abdomen Limited INDICATIONS: HERNIA TECHNIQUE: Real-time focused scanning was performed of the intra-abdominal wall. COMPARISONS: None. FINDINGS: Fascial defect in the ventral abdominal wall measures 1.2 cm associated with a fat-containing partial ly reducible umbilical hernia. IMPRESSION: Small periumbilical ventral hernia Reviewed by: Alejo Ruiz MD on 11/19/2022 11:11 AM DARIAN Approved by: Alejo Ruiz MD on 11/19/2022 11:11 AM DARIAN Station ID: [id number]
== END 2022-11-19 07:14 | disposition home or self-care (01) ==
LOC: DI 07:13
PROVIDERS: ATTEND Nurse Practitioner
DX: K43.9 Ventral hernia without obstruction or gangrene (principal)